=== PATIENT | male | born 1940 | race Caucasian/White ===

== ENCOUNTER 2019-08-09 16:09 | Emergency (ER) | payer MEDICARE, SELFPAY ==
[2019-08-09 16:18] VITALS: BP 160/81; PULSE 62; RESP 15; TEMP 36.4; O2SAT 98
--- NOTE | 2019-08-09 16:25 | ED_ITS ---
HPI - Fall <ELKIN Broderick-BC - Last Filed: 08/09/19 18:50> General Chief Complaint: Fall Stated Complaint: fall, hit back of head on concrete Time Seen by Provider: 08/09/19 16:14 Source: patient and family Mode of arrival: Wheelchair Limitations: no limitations History of Present Illness HPI Narrative: The patient is a 79-year-old male nonsmoker with an extensive medical history including stroke who presents with his children for chief complaint of a laceration to the back of his head and hitting his head. He tripped and fell off 1 stair, hitting his head on the concrete. No loss of consciousness. The patient denies any lightheadedness or dizziness, but states that he feels disoriented. He does not know when his last tetanus was. He denies any neck or back pain. The patient does not take any blood thinners. Family states that they have applied a dressing. The patient does not take any blood thinners. Related Data Home Medications Medication Instructions Recorded Confirmed atorvastatin 20 mg PO BEDTIME 08/09/19 08/09/19 finasteride 5 mg PO BEDTIME 08/09/19 08/09/19 hydrochlorothiazide 25 mg PO BEDTIME 08/09/19 08/09/19 lacosamide [Vimpat] 50 mg PO BID 08/09/19 08/09/19 levetiracetam 250 mg PO BID 08/09/19 08/09/19 levothyroxine 75 mcg PO DAILY 08/09/19 08/09/19 metoprolol tartrate 50 mg PO BID 08/09/19 08/09/19 omeprazole 20 mg PO DAILY 08/09/19 08/09/19 tamsulosin 0.4 mg PO DAILY 08/09/19 08/09/19 Review of Systems <ELKIN Broderick- - Last Filed: 08/09/19 18:50> Review of Systems Narrative: GENERAL: Denies chills, fatigue, malaise, fever, sweats. HEENT: Denies sinus pain, ear pain, sore throat, difficulty swallowing, dizziness. RESPIRATORY: Denies dyspnea, cough, wheezing, hemoptysis, sputum. CARDIOVASCULAR: Denies chest pain, palpitations, orthopnea, edema, GASTROINTESTINAL: Denies nausea, vomiting, abdominal pain, diarrhea, constipation, melena. : Denies dysuria, frequency, incontinence, hematuria, urinary retention. MUSCULOSKELETAL: See HPI SKIN: See HPI NEUROLOGIC: Denies weakness, headache, numbness, change in speech, confusion, seizures, incoordination. PSYCHIATRIC: No concerning psychosocial issues. 12 point review of systems is negative except for those stated above Patient History <MART Broderick - Last Filed: 08/09/19 18:50> Medical History (Updated 08/09/19 @ 18:43 by MART Broderick) History of stroke (Acute) Hypothyroid (Acute) Substance Use Type: does not use Exam <MART Broderick - Last Filed: 08/09/19 18:50> Narrative Exam Narrative: GENERAL: This is a well-nourished, well-developed patient, no acute distress HEAD: Atraumatic. Normocephalic. Laceration on occiput of head as noted in skin exam EYES: Pupils equal round and reactive. Extraocular motions intact. No scleral icterus. No injection or drainage. ENT: Nose without bleeding, purulent drainage or septal hematoma. Throat without erythema, tonsillar hypertrophy or exudate. Uvula midline. Airway patent. NECK: Trachea midline. No JVD or lymphadenopathy. Supple, nontender, no meningeal signs. CARDIOVASCULAR: Regular rate and rhythm RESPIRATORY: Clear to auscultation. Breath sounds equal bilaterally. No wheezes, rales, or rhonchi. No cough. No increased respiratory effort. No accessory muscle use. GASTROINTESTINAL: Abdomen soft, non-tender, nondistended. No hepato-splenomeg terry, or palpable masses. No guarding. EXTREMITIES: No clubbing, cyanosis, or edema. No joint tenderness, effusion, or edema noted. BACK: Nontender without deformity or crepitance. No flank tenderness. NEURO: AOx3. Interactive. Age appropriate. No pain to CT or L-spine palpation SKIN: 6 cm full-thickness laceration noted on back of head, no obvious muscle or tendon involvement. Well-approximated. Noted to have 2 x 2 cm overlying abrasion Initial Vital Signs Initial Vital Signs: Vital Signs Temperature 97.5 F L 08/09/19 16:18 Pulse Rate 62 08/09/19 16:18 Respiratory Rate 15 08/09/19 16:18 Blood Pressure 160/81 H 08/09/19 16:18 Pulse Oximetry 98 08/09/19 16:18 <Joan Healy DO - Last Filed: 08/10/19 07:21> Initial Vital Signs Initial Vital Signs: Vital Signs Temperature 97.5 F L 08/09/19 16:18 Pulse Rate 62 08/09/19 16:18 Respiratory Rate 15 08/09/19 16:18 Blood Pressure 160/81 H 08/09/19 16:18 Pulse Oximetry 98 08/09/19 16:18 Procedures <MART Broderick - Last Filed: 08/09/19 18:50> Laceration Repair Laceration 1: Site: scalp Size (cm): 6 Description: linear Depth: simple, single layer Local Anesthetic: other anesthetic (emla ) Pre-repair: wound explored, irrigated extensively (Cleansed with iodine) and deep structures intact Skin layer closed with: fátima (8) Scores <MART Broderick - Last Filed: 08/09/19 18:50> GCS Felecia coma scale eye opening: Spontaneous [place] coma scale verbal response: Orientated [place] coma scale motor response: Obey commands Felecia coma scale total score: 15 Nexus Score for C-Spine Focal Neurologic deficit present: No Midline spinal tenderness present: No Altered level of conciousness present: No Intoxication present: No Distracting Injury Present: No Nexus Criteria for C-spine: 0 Course <MART Broderick - Last Filed: 08/09/19 18:50> Orders Ordered: Discontinued Medications Diphtheria/Tetanus/Acell Pertussis (Adacel) 0.5 ml IM .ONCE ONE Stop: 08/09/19 16:24 Last Admin: 08/09/19 16:52 Dose: 0.5 ml Documented by: JASON Lidocaine (Lidoderm) 1 each TOP NOW ONE Stop: 08/09/19 16:24 Last Admin: 08/09/19 16:40 Dose: Not Given Documented by: JASON Lidocaine/Prilocaine (Lidocaine-Prilocaine Cream) 5 gm TOP NOW ONE Stop: 08/09/19 16:26 Last Admin: 08/09/19 16:52 Dose: 5 gm Documented by: JASON Vital Signs Vital signs: Vital Signs - 8 hr 08/09/19 16:18 08/09/19 18:01 08/09/19 18:06 Temperature 97.5 F L Pulse Rate 62 60 64 Respiratory Rate 15 18 16 Blood Pressure 160/81 H 156/80 H Blood Pressure [Right Arm] 133/67 Pulse Oximetry 98 97 97 <Joan Healy DO - Last Filed: 08/10/19 07:21> Orders Ordered: Discontinued Medications Diphtheria/Tetanus/Acell Pertussis (Adacel) 0.5 ml IM .ONCE ONE Stop: 08/09/19 16:24 Last Admin: 08/09/19 16:52 Dose: 0.5 ml Documented by: JASON Lidocaine (Lidoderm) 1 each TOP NOW ONE Stop: 08/09/19 16:24 Last Admin: 08/09/19 16:40 Dose: Not Given Documented by: JASON Lidocaine/Prilocaine (Lidocaine-Prilocaine Cream) 5 gm TOP NOW ONE Stop: 08/09/19 16:26 Last Admin: 08/09/19 16:52 Dose: 5 gm Documented by: JASON Vital Signs Vital signs: Vital Signs - 8 hr 08/09/19 16:18 08/09/19 18:01 08/09/19 18:06 Temperature 97.5 F L Pulse Rate 62 60 64 Respiratory Rate 15 18 16 Blood Pressure 160/81 H 156/80 H Blood Pressure [Right Arm] 133/67 Pulse Oximetry 98 97 97 MDM - Fall <MART Broderick - Last Filed: 08/09/19 18:50> Imaging Data C-spine CT: Radiologist's impression: [place] [address] CT Scan Report Signed Patient: Kun Nascimento RMR#: [id number] : 1940Acct:[id number] Age/Sex: 79 / MDate of Service: 08/09/19 Loc: ED Accession Number: [id number] Procedure: CT cervical spine wo con Ordering Provider: Amanda Terrell PROCEDURE: CT CERVICAL SPINE WO CON INDICATIONS: glf TECHNIQUE: Noncontrast 3 mm thick sections acquired from the skull base to the T4 level. Sagittal and coronal reformats were then constructed. For radiation dose reduction, the following was used: automated exposure control, adjustment of mA and/or kV according to patient size. COMPARISON: [facility], CT, CT HEAD/BRAIN WO CON, 08/09/2019, 16:35. FINDINGS: Image quality: Excellent. Bones: No fractures or dislocations. Visualized superior ribs are intact. Degenerative changes are seen, which are most prominent inferiorly, with moderate to severe disc space narrowing at C5-C6 and C6-C7. Bridging anterior osteophytes are seen involving the lower cervical spine and the visualized thoracic spine. Soft tissues: Prevertebral soft tissues are normal in thickness. No paravertebral hematomas. No apical pneumothoraces. IMPRESSION: No acute fractures are seen. Relatively prominent degenerative changes are seen, particularly involving the inferior cervical spine. Dictated by: Sunny Contreras M.D. on 08/09/2019 at 15:54 Approved by: Sunny Contreras M.D. on 08/09/2019 at 15:55 CT scan - head: Radiologist's impression: Kun Nascimento [address] [place] [address] CT Scan Report Signed Patient: Kun Nascimento RMR#: [id number] : 1940Acct:[id number] Age/Sex: 79 / MDate of Service: 08/09/19 Loc: ED Accession Number: [id number] Procedure: CT head/brain wo con [facility]: CT HEAD/BRAIN WO CON INDICATIONS: glf on concrete, hit head TECHNIQUE: Noncontrast 4.5 mm thick angled axial sections acquired from the foramen magnum to the vertex, with coronal and sagittal reformats. For radiation dose reduction, the following was used: automated exposure control, adjustment of mA and/or kV according to patient size. COMPARISON: [facility], CT, CT CERVICAL SPINE WO CON, 08/09/2019, 16:35. FINDINGS: Image quality: Excellent. CSF spaces: Basal cisterns are patent. No extra-axial fluid collections. The ventricles are symmetric in size and shape. Brain: Remote encephalomalacia can be seen involving the deep white matter of the right frontal lobe, with relative sparing of overlying feliciano matter No intracranial bleeds or masses. There is cerebral volume loss for age, with resultant ventricular and sulcal prominence. There are periventricular and deep white matter chronic small vessel ischemic changes. There is intracranial internal carotid artery atherosclerosis. Skull and face: Calvarium and visualized facial bones appear intact, without suspicious lesions. Sinuses: Visualized sinuses and mastoids are clear. IMPRESSION: No acute intracranial hemorrhage is seen. No acute intracranial process is seen. No displaced calvarial fracture can be seen. Right frontal lobe the density is seen, which is attributed to a remote infarct. However, less likely would be a mass with surrounding edema. When clinically appropriate, please consider a dedicated brain MRI with and without contrast for further evaluation (assuming that there is no contraindication). Dictated by: Sunny Contreras M.D. on 08/09/2019 at 15:49 Approved by: Sunny Contreras M.D. on 08/09/2019 at 15:54 [facility] Narrative Medical decision making narrative: The patient is a 79-year-old male with history of stroke who presents with a chief complaint of a trip and fall off of a stair hitting his head on concrete. Denies any loss of consciousness or neurological changes. He does have a history of stroke, given his history, advanced age and the significance of the trauma to the back of his head, a head CT was obtained. This had no acute findings. The patient was placed in a C- collar and a C-spine CT was also obtained. This shows no acute changes. The wound was cleansed provided iodine, it was closed as per procedural note which the patient tolerated well. I discussed at length monitoring for signs and symptoms of infection such as redness with some swelling. Discussed monitoring for neurological changes. Discussed following up in 10-14 days for staple removal. Patient has no questions or concerns and states understanding of return precautions as well as follow-up care. The patient was discharged home with his children. No questions or concerns. Discharge Plan Departure Patient Disposition: Home Clinical Impression: Laceration Fall down stairs Qualifiers: Encounter type: initial encounter Qualified Code(s): W10.8XXA - Fall (on) (from) other stairs and steps, initial encounter Closed head injury Qualifiers: Encounter type: initial encounter Qualified Code(s): S09.90XA - Unspecified injury of head, initial encounter Discharge Date/Time: 08/09/19 18:07 Instructions: DI for Laceration Repair -- Fátima, How to Prevent Falls, DI for Closed Head Injury Activity Restrictions/Additional Instructions: Thank you for trusting us with your care today. You have earned your ice cream and I hope it is very tasty. CTs of your head and neck show no acute findings. Please follow up in about 10 days for staple removal. Please monitor for signs and symptoms of infection such as redness pus and swelling. Please follow up with these occur. Please come back to the emergency department for any acute concerns. Prescriptions: No Action levothyroxine 75 mcg tablet 75 mcg PO DAILY RF: 0 atorvastatin 20 mg tablet 20 mg PO BEDTIME RF: 0 tamsulosin 0.4 mg capsule 0.4 mg PO DAILY RF: 0 levetiracetam 250 mg tablet 250 mg PO BID RF: 0 metoprolol tartrate 50 mg tablet 50 mg PO BID RF: 0 omeprazole 20 mg capsule,delayed release(DR/EC) 20 mg PO DAILY RF: 0 hydrochlorothiazide 25 mg tablet 25 mg PO BEDTIME RF: 0 Vimpat 50 mg tablet 50 mg PO BID RF: 0 finasteride 5 mg tablet 5 mg PO BEDTIME RF: 0
--- NOTE | 2019-08-09 16:30 | DI.CT.S_ITS ---
PROCEDURE: CT CERVICAL SPINE WO CON INDICATIONS: glf TECHNIQUE: Noncontrast 3 mm thick sections acquired from the skull base to the T4 level. Sagittal and coronal reformats were then constructed. For radiation dose reduction, the following was used: automated exposure control, adjustment of mA and/or kV according to patient size. COMPARISON: [facility], CT, CT HEAD/BRAIN WO CON, 08/09/2019, 16:35. FINDINGS: Image quality: Excellent. Bones: No fractures or dislocations. Visualized superior ribs are intact. Degenerative changes are seen, which are most prominent inferiorly, with moderate to severe disc space narrowing at C5-C6 and C6-C7. Bridging anterior osteophytes are seen involving the lower cervical spine and the visualized thoracic spine. Soft tissues: Prevertebral soft tissues are normal in thickness. No paravertebral hematomas. No apical pneumothoraces. IMPRESSION: No acute fractures are seen. Relatively prominent degenerative changes are seen, particularly involving the inferior cervical spine. Dictated by: Sunny Contreras M.D. on 08/09/2019 at 15:54 Approved by: Sunny Contreras M.D. on 08/09/2019 at 15:55
[2019-08-09] MEDS: LIDOCAINE/PRILOCAINE 5 GM TOP (16:52)
[2019-08-09] MEDS: TET,DIPH,PERTUSS(ACELL),VAC/PF 0.5 ML SYRINGE IM (16:52)
--- NOTE | 2019-08-09 17:49 | PC.NURSE ---
MARCO Terrell cleansed and placed 8 fátima to wound. pt tolerated well.
[2019-08-09 18:01] VITALS: BP 133/67; PULSE 60; RESP 18; O2SAT 97
[2019-08-09 18:06] VITALS: BP 156/80; PULSE 64; RESP 16; O2SAT 97
== END 2019-08-09 18:07 | disposition home or self-care (01) ==
PROVIDERS: Emergency Provider Nurse Practitioner Family
DX: S01.01XA Laceration without foreign body of scalp, initial encounter (principal); S09.90XA Unspecified injury of head, initial encounter; W10.8XXA Fall (on) (from) other stairs and steps, initial encounter; Z23 Encounter for immunization
CPT/HCPCS: 12002; 70450; 72125; 90471; 99283; 99284; 90715

== ENCOUNTER → 2020-11-18 13:11 | Outpatient (CLI) | payer MEDICARE, SELFPAY ==
[2020-11-18] MEDS: COVID-19 VACC, Ad26(JANSSEN)/PF 0.5 ML IM (13:41)
== END ==
PROVIDERS: Visit Provider Internal Medicine
DX: Z23 Encounter for immunization (principal)
CPT/HCPCS: 0031A; 91303

== ENCOUNTER 2022-05-18 14:30 | Outpatient (RCR) | payer MEDICARE, SELFPAY ==
--- NOTE | 2022-02-21 18:28 | PT.OIE ---
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) Ataxia, unspecified (02/21/22) Past Medical History (Last Updated 08/09/19 @ 18:43 by Amanda Terrell [facility]) History of stroke Hypothyroid Visit Care Team Role Provider Type Ranjan Zhao MD Attending Provider Non-Staff Family Provider Primary Care Provider Referring Provider Specialty: Internal Medicine Address: [address] [place], [place] [id number], [place], [address] Email: Physical Therapy Initial Evaluation PT-OP-A Visit Information Start: 02/20/22 18:11 Freq: Status: Active Protocol: Document 02/21/22 13:50 [facility] (Rec: 02/21/22 14:42 [facility] [id number]) Out-Patient Physical Therapy Visit Information Visit Information Visit Type Initial Evaluation Visit Note 09/19 Visit Start Time 13:50 Visit Stop Time 14:30 Total Visit Minutes 40 Visit Number 1 Number of UTILITIES ESTIMATOR AND DRAFTER Visits 0 PT-OP-B Current Condition Start: 02/20/22 18:11 Freq: Status: Active Protocol: Document 02/21/22 13:50 [facility] (Rec: 02/21/22 14:42 [facility] [id number]) Current Condition History of Current Condition Current Complaints falls, weakness, dec balance History of Current Condition Pt reports he had a CVA in 2013 and had PT/OT for 2 months including SNF and it looked like he was going to recover all the way then had a seizure, in 2014. He reports he has no balance at all. If i stub my toe, I go down. A month or so ago, he had a bad case of brochitis and got very weak. He is still not where he was prior to brochitis. He walks with walking stick in R hand at all times. He does a lot of things outside. He has lawn tractor close by in case he needs to grab. He lives alone and has a large yard. He keeps up the shrubs, and uses the community service director. He can most of the time get up when he falls. He is falling at least 1x/week. Pt reports his L leg doesn't do a lot of movement. 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 Pt reports last couple years, the falls have been worse. He doesn't drive and dgt brings him. Pt lives in [place] and will be staying with his dgt for a few weeks at a time then going home for a few weeks. Treatment Goals Patient/Caregiver Goals Improve balance, improve gait, strengthen L leg, dec falls PT-OP-D Balance Start: 02/20/22 18:11 Freq: Status: Active Protocol: Document 02/21/22 13:50 [facility] (Rec: 02/21/22 14:42 [facility] [id number]) Balance Tests Prasad Balance Test Prasad Balance Test Score 36 Single Limb Standing Single Limb- Right 1 sec Single Limb- Left 1 sec PT-OP-E Functional Tests Start: 02/20/22 18:11 Freq: Status: Active Protocol: Document 02/21/22 13:50 [facility] (Rec: 02/21/22 14:42 [facility] [id number]) Functional Tests 30 Second Sit to Stand Test Score 6 Comments w/hands Dynamic Gait Index (DGI) Score 10 Five Times Sit to Stand Test Score 25 sec Comments w/hands Timed Up and Go (TUG) Score 26 sec no AD PT-OP-G Mobility & Gait Start: 02/20/22 18:11 Freq: Status: Active Protocol: Document 02/21/22 13:50 [facility] (Rec[facility] 02/21/22 14[id number] OP Mobility Evaluation Bed Mobility Rolling indep Transfers Sit to Stand must uses UE OP Gait Assessment Comments Gait Comments Pt has dec DF w/LLE w/ clearance, dec stance time on on LLE , slow, walking stick in RUE PT-OP-M Strength Start: 02/20/22 18:11 Freq: Status: Active Protocol: Document 02/21/22 13:50 [facility] (Rec: 02/21/22 14:42 [facility] [id number]) Hip Strength Hip Manual Muscle Testing Right Flexion (L2) 4- Good- Abduction 3+ Fair+ External Rotation 4 Good Internal Rotation 4+ Good+ Left Flexion (L2) 3+ Fair+ Abduction 3 Fair External Rotation 3+ Fair+ Internal Rotation 3- Fair- Knee Strength Knee Manual Muscle Testing Right Flexion (S2) 5 Normal Extension (L3) 5 Normal Left Flexion (S2) 3+ Fair+ Extension (L3) 4 Good Ankle/Foot Strength Ankle and Foot Manual Muscle Testing Right Dorsiflexion (L4) 5 Normal Plantarflexion (S1) 5 Normal Comments PF tested seated Left Dorsiflexion (L4) 3- Fair- Plantarflexion (S1) 4- Good- Comments PF tested seated PT-OP-T Assessment and Plan Start: 02/20/22 18:11 Freq: Status: Active Protocol: Document 02/21/22 13:50 [facility] (Rec: 02/21/22 14:42 [facility] [id number]) Physical Therapy Assessment Rehab Potential Rehabilitation Potential Good Evaluation Complexity Number of Personal Factors/Comorbidities 3 or More Number of Body Systems Impaired 4 or More Clinical Presentation at Evaluation Unstable Impairments Impairments Activity Tolerance,Balance, Functional Activities, Functional Mobility,Gait,Pain, Posture,ROM,Strength Goals falls Intermediate Goal (LTG) Pt will report no falls for 3 weeks LTG Duration 05/24/22 DGI Impairment 07/03 Short Term Goal (STG) Pt will improve score to at least 15 to dec risk for falls . STG Duration 04/10/22 Intermediate Goal (LTG) Pt will imrpove score to at least 20 to dec risk for falls . LTG Duration 05/24/22 PRASAD Impairment 36 Short Term Goal (STG) Pt will improve score to at least >45 to show dec risk of fall and safe ambulator w/o AD . STG Duration 04/10/22 Intermediate Goal (LTG) Pt will improve score to >50 to show safe community ambulator. LTG Duration 05/24/22 sit to stands Short Term Goal (STG) Pt will be able to do sit to stand from standard chair w/o UE use to show improved balancea nd LE strength STG Duration 04/10/22 Dipping Machine Operator Goal (LTG) Pt will be able to do 10 sit to stands in 30 sec which is an age related norm to show improved balance and LE strength LTG Duration 05/24/22 strength Short Term Goal (STG) Pt will be indep w/performance of HEP at home and w/dgt at her home. STG Duration 04/08/22 Intermediate Goal (LTG) Pt will improve strength to at least 4+/5 on R and at least 4/5 on L to improve pt's strength in order to improve balance and gait mechanics. LTG Duration 05/24/22 Assessment Summary Assessment Pt presents w/worsening balance over the past few years w/history of CVA in 2014 that affected his L side and seizures that worsened his condition starting in 2014. He is now falling about 1x/week and lives alone most of the time and is able to attend PT appts by visiting dgt in [place] for a few weeks at a time to get services as he does not drive anymore. He has limited L ankle PROM and AROM which prevents him from getting good LLE clearance during gait. He shows significant fall risk based on sit tos tand testing, DGI and PRASAD. He would benefit from skilled PT to work on strength , balance, and gait. Physical Therapy Plan Frequency and Duration Frequency of Treatment 2x/Week Duration of Treatment 3 months Plan of Care Start Date 02/21/22 Plan of Care End Date 05/24/22 Therapeutic Interventions Therapeutic Interventions Aquatic Therapy,Balance Training,Gait Training,Home Exercise Program,Manual Therapy,Neuromuscular Re- education,Patient/Caregiver Education,Self-Care/Home Management,Taping,Therapeutic Activities,Therapeutic Exercises Next Visit Focus/Plan Next Note Type Treatment Note Next Visit Plan HEP: standing hip abd, standing hip ext, sit to stands, heel raises, seated APs; balance in standing w/ dynamic movements & on foam
--- NOTE | 2022-02-21 18:28 | PT.OPPOC ---
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 (Rec: 02/21/22 14:42 [facility] [id number]) Physical Therapy Assessment Rehab Potential Rehabilitation Potential Good Evaluation Complexity Number of Personal Factors/Comorbidities 3 or More Number of Body Systems Impaired 4 or More Clinical Presentation at Evaluation Unstable Impairments Impairments Activity Tolerance,Balance, Functional Activities, Functional Mobility,Gait,Pain, Posture,ROM,Strength Goals falls Aqueduct And Reservoir Keeper Goal (LTG) Pt will report no falls for 3 weeks LTG Duration 05/24/22 DGI Impairment 07/03 Short Term Goal (STG) Pt will improve score to at least 15 to dec risk for falls . STG Duration 04/10/22 Aqueduct And Reservoir Keeper Goal (LTG) Pt will imrpove score to at least 20 to dec risk for falls . LTG Duration 05/24/22 PRASAD Impairment 36 Short Term Goal (STG) Pt will improve score to at least >45 to show dec risk of fall and safe ambulator w/o AD . STG Duration 04/10/22 Aqueduct And Reservoir Keeper Goal (LTG) Pt will improve score to >50 to show safe community ambulator. LTG Duration 05/24/22 sit to stands Short Term Goal (STG) Pt will be able to do sit to stand from standard chair w/o UE use to show improved balancea nd LE strength STG Duration 04/10/22 Aqueduct And Reservoir Keeper Goal (LTG) Pt will be able to do 10 sit to stands in 30 sec which is an age related norm to show improved balance and LE strength LTG Duration 05/24/22 strength Short Term Goal (STG) Pt will be indep w/performance of HEP at home and w/dgt at her home. STG Duration 04/08/22 Aqueduct And Reservoir Keeper Goal (LTG) Pt will improve strength to at least 4+/5 on R and at least 4/5 on L to improve pt's strength in order to improve balance and gait mechanics. LTG Duration 05/24/22 Assessment Summary Assessment Pt presents w/worsening balance over the past few years w/history of CVA in 2013 that affected his L side and seizures that worsened his condition starting in 2014. He is now falling about 1x/week and lives alone most of the time and is able to attend PT appts by visiting dgt in [place] for a few weeks at a time to get services as he does not drive anymore. He has limited L ankle PROM and AROM which prevents him from getting good LLE clearance during gait. He shows significant fall risk based on sit tos tand testing, DGI and PRASAD. He would benefit from skilled PT to work on strength , balance, and gait. Physical Therapy Plan Frequency and Duration Frequency of Treatment 2x/Week Duration of Treatment 3 months Plan of Care Start Date 02/21/22 Plan of Care End Date 05/24/22 Therapeutic Interventions Therapeutic Interventions Aquatic Therapy,Balance Training,Gait Training,Home Exercise Program,Manual Therapy,Neuromuscular Re- education,Patient/Caregiver Education,Self-Care/Home Management,Taping,Therapeutic Activities,Therapeutic Exercises Next Visit Focus/Plan Next Note Type Treatment Note Next Visit Plan HEP: standing hip abd, standing hip ext, sit to stands, heel raises, seated APs; balance in standing w/ dynamic movements & on foam Plan of Care Dates Plan of Care Start Date 02/21/22 Plan of Care End Date 05/24/22 Electronically Signed by: Maya Alexandra, PT 02/21/22 0071 If you are in agreement with this Plan of Care, please return a signed and dated copy. I have reviewed this Plan of Care and certify that the skilled therapy services above are required to meet the patient?s needs. Physician Signature Date Printed Name and Credentials Clinical Instructor Signature Printed Name and Credentials
--- NOTE | 2022-02-23 10:40 | PT.OTN ---
Current Diagnoses Ataxia following cerebral infarction (02/23/22) Ataxia, unspecified (02/23/22) Physical Therapy Treatment Note PT-OP-A Visit Information Start: 02/20/22 18:11 Freq: Status: Active Protocol: Document 02/23/22 10:02 [facility] (Rec: 02/23/22 10:47 [facility] [id number]) Out-Patient Physical Therapy Visit Information Visit Information Visit Type Treatment Note Visit Note 10/20 Visit Start Time 09:55 Visit Stop Time 10:40 Total Visit Minutes 45 Visit Number 2 Number of FLEET MANAGER/DISPATCH Visits 1 PT-OP-B Current Condition Start: 02/20/22 18:11 Freq: Status: Active Protocol: Document 02/21/22 13:50 [facility] (Rec: 02/21/22 14:42 [facility] [id number]) Current Condition History of Current Condition Current Complaints falls, weakness, dec balance History of Current Condition Pt reports he had a CVA in 2013 and had PT/OT for 2 months including SNF and it looked like he was going to recover all the way then had a seizure, in 2014. He reports he has no balance at all. If i stub my toe, I go down. A month or so ago, he had a bad case of brochitis and got very weak. He is still not where he was prior to brochitis. He walks with walking stick in R hand at all times. He does a lot of things outside. He has lawn tractor close by in case he needs to grab. He lives alone and has a large yard. He keeps up the shrubs, and uses the photoengraving etcher apprentice. He can most of the time get up when he falls. He is falling at least 1x/week. Pt reports his L leg doesn't do a lot of movement. 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 Pt reports last couple years, the falls have been worse. He doesn't drive and dgt brings him. Pt lives in [place] and will be staying with his dgt for a few weeks at a time then going home for a few weeks. Treatment Goals Patient/Caregiver Goals Improve balance, improve gait, strengthen L leg, dec falls PT-OP-C Subjective Start: 02/20/22 18:11 Freq: Status: Active Protocol: Document 02/23/22 10:02 [facility] (Rec: 02/23/22 10:47 [facility] [id number]) OP-PT Subjective Patient Comments Patient Comments Pt reports he had a mini seizure today on his L side about 8a and is feeling more tired and weaker. He's been doing his exercises but is unable to do them as well after the seizure. He cannot close his L hand completely since CVA. PT-OP-D Balance Start: 02/20/22 18:11 Freq: Status: Active Protocol: Document 02/21/22 13:50 [facility] (Rec: 02/21/22 14:42 [facility] [id number]) Balance Tests Prasad Balance Test Prasad Balance Test Score 36 Single Limb Standing Single Limb- Right 1 sec Single Limb- Left 1 sec PT-OP-E Functional Tests Start: 02/20/22 18:11 Freq: Status: Active Protocol: Document 02/21/22 13:50 [facility] (Rec: 02/21/22 14:42 [facility] [id number]) Functional Tests 30 Second Sit to Stand Test Score 6 Comments w/hands Dynamic Gait Index (DGI) Score 10 Five Times Sit to Stand Test Score 25 sec Comments w/hands Timed Up and Go (TUG) Score 26 sec no AD PT-OP-G Mobility & Gait Start: 02/20/22 18:11 Freq: Status: Active Protocol: Document 02/21/22 13:50 [facility] (Rec: 02/21/22 14:42 [facility] [id number]) OP Mobility Evaluation Bed Mobility Rolling indep Transfers Sit to Stand must uses UE OP Gait Assessment Comments Gait Comments Pt has dec DF w/LLE w/ clearance, dec stance time on on LLE , slow, walking stick in RUE PT-OP-M Strength Start: 02/20/22 18:11 Freq: Status: Active Protocol: Document 02/21/22 13:50 [facility] (Rec: 02/21/22 14:42 [facility] [id number]) Hip Strength Hip Manual Muscle Testing Right Flexion (L2) 4- Good- Abduction 3+ Fair+ External Rotation 4 Good Internal Rotation 4+ Good+ Left Flexion (L2) 3+ Fair+ Abduction 3 Fair External Rotation 3+ Fair+ Internal Rotation 3- Fair- Knee Strength Knee Manual Muscle Testing Right Flexion (S2) 5 Normal Extension (L3) 5 Normal Left Flexion (S2) 3+ Fair+ Extension (L3) 4 Good Ankle/Foot Strength Ankle and Foot Manual Muscle Testing Right Dorsiflexion (L4) 5 Normal Plantarflexion (S1) 5 Normal Comments PF tested seated Left Dorsiflexion (L4) 3- Fair- Plantarflexion (S1) 4- Good- Comments PF tested seated PT-OP-Q Treatments Start: 02/20/22 18:11 Freq: Status: Active Protocol: Document 02/23/22 10:02 [facility] (Rec: 02/26/22 17:11 [facility] [id number]) Therapeutic Exercises Sitting Exercises Hand Abduction to Closed Fist Side left Reps/Minutes 10 rep x 5 SH ea Comments vc to hold each position 5 Hip Adduction Sitting Exercise Name Seated ball squeeze Side bilateral Equipment Used red handball Reps/Minutes 10 x 3 SH Comments Added to HEP Heel raises Sitting Exercise Name Seated heel raises Side bilateral Reps/Minutes 2 x 10 ea Comments Added to HEP Standing Exercises Hip Extension Side bilateral Reps/Minutes 1 x 5 ea Comments cues for upright posture, toes forward and form. Hip Abduction Side bilateral Reps/Minutes 1 x 5 ea Comments cues for upright posture, toes forward and form. Sit to Stand Reps/Minutes 1 x 5 rep Comments vc for controlled descent, scooting to edge of chair. PT-OP-T Assessment and Plan Start: 02/20/22 18:11 Freq: Status: Active Protocol: Document 02/23/22 10:02 [facility] (Rec: 02/23/22 10:47 [facility] [id number]) Physical Therapy Assessment Goals falls Dry Cleaning Attendant Goal (LTG) Pt will report no falls for 3 weeks LTG Duration 05/24/22 DGI Impairment 07/03 Short Term Goal (STG) Pt will improve score to at least 15 to dec risk for falls . STG Duration 04/10/22 Alf Goal (LTG) Pt will imrpove score to at least 20 to dec risk for falls . LTG Duration 05/24/22 PRASAD Impairment 36 Short Term Goal (STG) Pt will improve score to at least >45 to show dec risk of fall and safe ambulator w/o AD . STG Duration 04/10/22 Alf Goal (LTG) Pt will improve score to >50 to show safe community ambulator. LTG Duration 05/24/22 sit to stands Short Term Goal (STG) Pt will be able to do sit to stand from standard chair w/o UE use to show improved balancea nd LE strength STG Duration 04/10/22 Alf Goal (LTG) Pt will be able to do 10 sit to stands in 30 sec which is an age related norm to show improved balance and LE strength LTG Duration 05/24/22 strength Short Term Goal (STG) Pt will be indep w/performance of HEP at home and w/dgt at her home. STG Duration 04/08/22 Alf Goal (LTG) Pt will improve strength to at least 4+/5 on R and at least 4/5 on L to improve pt's strength in order to improve balance and gait mechanics. LTG Duration 05/24/22 Assessment Summary Assessment Kun arrives fatigued today after having a seizure this morning. He demonstrates LLE weakness and readily applies principles of energy conservation. He requires cues for upright posture and form w/ standing hip exercises. Seated ball squeezes and heel raises added to HEP. Kun had a mini seizure while being escorted out ~ 1 min - pt was able to sit in chair and FLEET MANAGER/DISPATCH was present throughout . Daughter Ashish assisted pt out per his request. Physical Therapy Plan Next Visit Focus/Plan Next Note Type Treatment Note Next Visit Plan Check status with seizures, fatigue and ability to perform HEP. Review HEP: standing hip abd/ ext, sit to stands, seated heel raises, seated APs. If appropriate add balance in standing w/dynamic movements & on foam.
--- NOTE | 2022-03-01 13:48 | PT.OTN ---
Current Diagnoses Ataxia following cerebral infarction (03/01/22) Ataxia, unspecified (03/01/22) Physical Therapy Treatment Note PT-OP-A Visit Information Start: 02/20/22 18:11 Freq: Status: Active Protocol: Document 03/01/22 13:00 [facility] (Rec: 03/01/22 13:47 [facility] [id number]) Out-Patient Physical Therapy Visit Information Visit Information Visit Type Treatment Note Visit Note 11/17 Visit Start Time 13:00 Visit Stop Time 13:43 Total Visit Minutes 43 Visit Number 3 Number of NISSAN SALES CONSULTANT Visits 0 PT-OP-B Current Condition Start: 02/20/22 18:11 Freq: Status: Active Protocol: Document 02/21/22 13:50 [facility] (Rec: 02/21/22 14:42 [facility] [id number]) Current Condition History of Current Condition Current Complaints falls, weakness, dec balance History of Current Condition Pt reports he had a CVA in 2013 and had PT/OT for 2 months including SNF and it looked like he was going to recover all the way then had a seizure, in 2014. He reports he has no balance at all. If i stub my toe, I go down. A month or so ago, he had a bad case of brochitis and got very weak. He is still not where he was prior to brochitis. He walks with walking stick in R hand at all times. He does a lot of things outside. He has lawn tractor close by in case he needs to grab. He lives alone and has a large yard. He keeps up the shrubs, and uses the construction estimator. He can most of the time get up when he falls. He is falling at least 1x/week. Pt reports his L leg doesn't do a lot of movement. 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 Pt reports last couple years, the falls have been worse. He doesn't drive and dgt brings him. Pt lives in [place] and will be staying with his dgt for a few weeks at a time then going home for a few weeks. Treatment Goals Patient/Caregiver Goals Improve balance, improve gait, strengthen L leg, dec falls PT-OP-C Subjective Start: 02/20/22 18:11 Freq: Status: Active Protocol: Document 03/01/22 13:00 [facility] (Rec: 03/01/22 13:47 [facility] [id number]) OP-PT Subjective Patient Comments Patient Comments Pt reports compliance w/ exericses. He is most concerned about his balance. PT-OP-D Balance Start: 02/20/22 18:11 Freq: Status: Active Protocol: Document 02/21/22 13:50 [facility] (Rec: 02/21/22 14:42 [facility] [id number]) Balance Tests Prasad Balance Test Prasad Balance Test Score 36 Single Limb Standing Single Limb- Right 1 sec Single Limb- Left 1 sec PT-OP-E Functional Tests Start: 02/20/22 18:11 Freq: Status: Active Protocol: Document 02/21/22 13:50 [facility] (Rec: 02/21/22 14:42 [facility] [id number]) Functional Tests 30 Second Sit to Stand Test Score 6 Comments w/hands Dynamic Gait Index (DGI) Score 10 Five Times Sit to Stand Test Score 25 sec Comments w/hands Timed Up and Go (TUG) Score 26 sec no AD PT-OP-G Mobility & Gait Start: 02/20/22 18:11 Freq: Status: Active Protocol: Document 02/21/22 13:50 [facility] (Rec: 02/21/22 14:42 [facility] [id number]) OP Mobility Evaluation Bed Mobility Rolling indep Transfers Sit to Stand must uses UE OP Gait Assessment Comments Gait Comments Pt has dec DF w/LLE w/ clearance, dec stance time on on LLE , slow, walking stick in RUE PT-OP-M Strength Start: 02/20/22 18:11 Freq: Status: Active Protocol: Document 02/21/22 13:50 [facility] (Rec: 02/21/22 14:42 [facility] [id number]) Hip Strength Hip Manual Muscle Testing Right Flexion (L2) 4- Good- Abduction 3+ Fair+ External Rotation 4 Good Internal Rotation 4+ Good+ Left Flexion (L2) 3+ Fair+ Abduction 3 Fair External Rotation 3+ Fair+ Internal Rotation 3- Fair- Knee Strength Knee Manual Muscle Testing Right Flexion (S2) 5 Normal Extension (L3) 5 Normal Left Flexion (S2) 3+ Fair+ Extension (L3) 4 Good Ankle/Foot Strength Ankle and Foot Manual Muscle Testing Right Dorsiflexion (L4) 5 Normal Plantarflexion (S1) 5 Normal Comments PF tested seated Left Dorsiflexion (L4) 3- Fair- Plantarflexion (S1) 4- Good- Comments PF tested seated PT-OP-Q Treatments Start: 02/20/22 18:11 Freq: Status: Active Protocol: Document 03/01/22 13:00 [facility] (Rec: 03/01/22 13:47 [facility] [id number]) Cardio Equipment Recumbent Stepper (Sci-Fit) Duration (Minutes) 5 Resistance 5 Seat Position 11 Gym Equipment Shuttle Balance blue clips Details w/head turns Comments fwd & side: WBOS & NBOS fwd: staggered stance B Therapeutic Exercises Sitting Exercises Heel raises Sitting Exercise Name APs Side bilateral Reps/Minutes 10 Comments reviewed HEP Standing Exercises heel raises Side bilateral Reps/Minutes 15 march Side bilateral Reps/Minutes 15 ea calf stretch Standing Exercise Name fwd lean Side bilateral Reps/Minutes 30 sec ea Hip Extension Side bilateral Reps/Minutes 1 x 10 ea Comments cues for upright posture, toes forward and form. Hip Abduction Side bilateral Reps/Minutes 1 x 10 ea Comments cues for upright posture, toes forward and form. Sit to Stand Reps/Minutes 1 x 10 rep Comments vc for controlled descent, scooting to edge of chair. Neuro Re-Education Treatment Balance Activities SLS Details Toe taps to 6 in step Reps/Duration 10 B hurdles Comments 1. fwd over step through x6 2. side step over step to x2 B PT-OP-T Assessment and Plan Start: 02/20/22 18:11 Freq: Status: Active Protocol: Document 03/01/22 13:00 [facility] (Rec: 03/01/22 13:47 [facility] [id number]) Physical Therapy Assessment Goals falls Care Home Goal (LTG) Pt will report no falls for 3 weeks LTG Duration 05/24/22 DGI Impairment 07/03 Short Term Goal (STG) Pt will improve score to at least 15 to dec risk for falls . STG Duration 04/10/22 Conservation Technician Goal (LTG) Pt will imrpove score to at least 20 to dec risk for falls . LTG Duration 05/24/22 PRASAD Impairment 36 Short Term Goal (STG) Pt will improve score to at least >45 to show dec risk of fall and safe ambulator w/o AD . STG Duration 04/10/22 Conservation Technician Goal (LTG) Pt will improve score to >50 to show safe community ambulator. LTG Duration 05/24/22 sit to stands Short Term Goal (STG) Pt will be able to do sit to stand from standard chair w/o UE use to show improved balancea nd LE strength STG Duration 04/10/22 Conservation Technician Goal (LTG) Pt will be able to do 10 sit to stands in 30 sec which is an age related norm to show improved balance and LE strength LTG Duration 05/24/22 strength Short Term Goal (STG) Pt will be indep w/performance of HEP at home and w/dgt at her home. STG Duration 04/08/22 Care Home Goal (LTG) Pt will improve strength to at least 4+/5 on R and at least 4/5 on L to improve pt's strength in order to improve balance and gait mechanics. LTG Duration 05/24/22 Assessment Summary Assessment Pt did well with exercises, but is most challenged by dynamic exercise. He did well on balnce board and will likely be able to do red clips w/good challenge next esssion . Physical Therapy Plan Frequency and Duration Frequency of Treatment 2x/Week Duration of Treatment 3 months Plan of Care Start Date 02/21/22 Plan of Care End Date 05/24/22 Next Visit Focus/Plan Next Note Type Treatment Note Next Visit Plan Progress standing balance and overall strength
--- NOTE | 2022-03-02 13:45 | PT.OTN ---
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 (Rec: 03/02/22 13:45 [facility] [id number]) Out-Patient Physical Therapy Visit Information Visit Information Visit Type Treatment Note Visit Note 12/18 Visit Start Time 13:00 Visit Stop Time 13:42 Total Visit Minutes 42 Visit Number 4 Number of RESTUARANT CREW WORKER Visits 0 PT-OP-B Current Condition Start: 02/20/22 18:11 Freq: Status: Active Protocol: Document 02/21/22 13:50 [facility] (Rec: 02/21/22 14:42 [facility] [id number]) Current Condition History of Current Condition Current Complaints falls, weakness, dec balance History of Current Condition Pt reports he had a CVA in 2013 and had PT/OT for 2 months including SNF and it looked like he was going to recover all the way then had a seizure, in 2014. He reports he has no balance at all. If i stub my toe, I go down. A month or so ago, he had a bad case of brochitis and got very weak. He is still not where he was prior to brochitis. He walks with walking stick in R hand at all times. He does a lot of things outside. He has lawn tractor close by in case he needs to grab. He lives alone and has a large yard. He keeps up the shrubs, and uses the vamper. He can most of the time get up when he falls. He is falling at least 1x/week. Pt reports his L leg doesn't do a lot of movement. 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 Pt reports last couple years, the falls have been worse. He doesn't drive and dgt brings him. Pt lives in [place] and will be staying with his dgt for a few weeks at a time then going home for a few weeks. Treatment Goals Patient/Caregiver Goals Improve balance, improve gait, strengthen L leg, dec falls PT-OP-C Subjective Start: 02/20/22 18:11 Freq: Status: Active Protocol: Document 03/02/22 13:00 [facility] (Rec: 03/02/22 13:45 [facility] [id number]) OP-PT Subjective Patient Comments Patient Comments I think I am almost recovered from yesterday PT-OP-D Balance Start: 02/20/22 18:11 Freq: Status: Active Protocol: Document 02/21/22 13:50 [facility] (Rec: 02/21/22 14:42 [facility] [id number]) Balance Tests Prasad Balance Test Prasad Balance Test Score 36 Single Limb Standing Single Limb- Right 1 sec Single Limb- Left 1 sec PT-OP-E Functional Tests Start: 02/20/22 18:11 Freq: Status: Active Protocol: Document 02/21/22 13:50 [facility] (Rec: 02/21/22 14:42 [facility] [id number]) Functional Tests 30 Second Sit to Stand Test Score 6 Comments w/hands Dynamic Gait Index (DGI) Score 10 Five Times Sit to Stand Test Score 25 sec Comments w/hands Timed Up and Go (TUG) Score 26 sec no AD PT-OP-G Mobility & Gait Start: 02/20/22 18:11 Freq: Status: Active Protocol: Document 02/21/22 13:50 [facility] (Rec: 02/21/22 14:42 [facility] [id number]) OP Mobility Evaluation Bed Mobility Rolling indep Transfers Sit to Stand must uses UE OP Gait Assessment Comments Gait Comments Pt has dec DF w/LLE w/ clearance, dec stance time on on LLE , slow, walking stick in RUE PT-OP-M Strength Start: 02/20/22 18:11 Freq: Status: Active Protocol: Document 02/21/22 13:50 [facility] (Rec: 02/21/22 14:42 [facility] [id number]) Hip Strength Hip Manual Muscle Testing Right Flexion (L2) 4- Good- Abduction 3+ Fair+ External Rotation 4 Good Internal Rotation 4+ Good+ Left Flexion (L2) 3+ Fair+ Abduction 3 Fair External Rotation 3+ Fair+ Internal Rotation 3- Fair- Knee Strength Knee Manual Muscle Testing Right Flexion (S2) 5 Normal Extension (L3) 5 Normal Left Flexion (S2) 3+ Fair+ Extension (L3) 4 Good Ankle/Foot Strength Ankle and Foot Manual Muscle Testing Right Dorsiflexion (L4) 5 Normal Plantarflexion (S1) 5 Normal Comments PF tested seated Left Dorsiflexion (L4) 3- Fair- Plantarflexion (S1) 4- Good- Comments PF tested seated PT-OP-Q Treatments Start: 02/20/22 18:11 Freq: Status: Active Protocol: Document 03/02/22 13:00 [facility] (Rec: 03/02/22 13:45 [facility] [id number]) Cardio Equipment Recumbent Stepper (Sci-Fit) Duration (Minutes) 6 Resistance 5 Seat Position 11 Gym Equipment Shuttle Balance red clips Comments fwd & side : WBOS & NBOS fwd: staggered stance Therapeutic Exercises Standing Exercises side step Side bilateral Reps/Minutes 20ft ea heel raises Side bilateral Reps/Minutes 15 november Side bilateral Reps/Minutes 10 ea calf stretch Standing Exercise Name fwd lean Side bilateral Reps/Minutes 30 sec ea Neuro Re-Education Treatment Balance Activities SLS Comments 1.Toe taps to 6 in step 12 B 2. SLS modified w/opp LE on dynadisc B 3. SLS w/ball roll under foot B hurdles Details 1 hand on hand rail Comments 1. fwd over step through x6 2. side step over step to x1 B PT-OP-T Assessment and Plan Start: 02/20/22 18:11 Freq: Status: Active Protocol: Document 03/02/22 13:00 [facility] (Rec: 03/02/22 13:45 [facility] [id number]) Physical Therapy Assessment Goals falls [facility] Goal (LTG) Pt will report no falls for 3 weeks LTG Duration 05/24/22 DGI Impairment 07/03 Short Term Goal (STG) Pt will improve score to at least 15 to dec risk for falls . STG Duration 04/10/22 Wool Classer Goal (LTG) Pt will imrpove score to at least 20 to dec risk for falls . LTG Duration 05/24/22 PRASAD Impairment 36 Short Term Goal (STG) Pt will improve score to at least >45 to show dec risk of fall and safe ambulator w/o AD . STG Duration 04/10/22 Wool Classer Goal (LTG) Pt will improve score to >50 to show safe community ambulator. LTG Duration 05/24/22 sit to stands Short Term Goal (STG) Pt will be able to do sit to stand from standard chair w/o UE use to show improved balancea nd LE strength STG Duration 04/10/22 Wool Classer Goal (LTG) Pt will be able to do 10 sit to stands in 30 sec which is an age related norm to show improved balance and LE strength LTG Duration 05/24/22 strength Short Term Goal (STG) Pt will be indep w/performance of HEP at home and w/dgt at her home. STG Duration 04/08/22 Wool Classer Goal (LTG) Pt will improve strength to at least 4+/5 on R and at least 4/5 on L to improve pt's strength in order to improve balance and gait mechanics. LTG Duration 05/24/22 Assessment Summary Assessment Pt was very challneged by red clips and required a lot of encouragment to dec hand use. He did better w/toe taps but was very challenged by other modified SLS activities. Physical Therapy Plan Frequency and Duration Frequency of Treatment 2x/Week Duration of Treatment 3 months Plan of Care Start Date 02/21/22 Plan of Care End Date 05/24/22 Next Visit Focus/Plan Next Note Type Treatment Note Next Visit Plan Progress standing balance and overall strength
--- NOTE | 2022-04-25 13:53 | PT.OTN ---
Current Diagnoses Ataxia following cerebral infarction (04/25/22) Ataxia, unspecified (04/25/22) Physical Therapy Treatment Note PT-OP-A Visit Information Start: 02/20/22 18:11 Freq: Status: Active Protocol: Document 04/25/22 13:06 [facility] (Rec: 04/25/22 13:53 [facility] [id number]) Out-Patient Physical Therapy Visit Information Visit Information Visit Type Treatment Note Visit Note 01/17 Visit Start Time 13:00 Visit Stop Time 13:42 Total Visit Minutes 42 Visit Number 5 Number of TRANSPORTATION ENGINEER Visits 0 PT-OP-B Current Condition Start: 02/20/22 18:11 Freq: Status: Active Protocol: Document 02/21/22 13:50 [facility] (Rec: 02/21/22 14:42 [facility] [id number]) Current Condition History of Current Condition Current Complaints falls, weakness, dec balance History of Current Condition Pt reports he had a CVA in 2013 and had PT/OT for 2 months including SNF and it looked like he was going to recover all the way then had a seizure, in 2014. He reports he has no balance at all. If i stub my toe, I go down. A month or so ago, he had a bad case of brochitis and got very weak. He is still not where he was prior to brochitis. He walks with walking stick in R hand at all times. He does a lot of things outside. He has lawn tractor close by in case he needs to grab. He lives alone and has a large yard. He keeps up the shrubs, and uses the school operations manager. He can most of the time get up when he falls. He is falling at least 1x/week. Pt reports his L leg doesn't do a lot of movement. 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 Pt reports last couple years, the falls have been worse. He doesn't drive and dgt brings him. Pt lives in [place] and will be staying with his dgt for a few weeks at a time then going home for a few weeks. Treatment Goals Patient/Caregiver Goals Improve balance, improve gait, strengthen L leg, dec falls PT-OP-C Subjective Start: 02/20/22 18:11 Freq: Status: Active Protocol: Document 04/25/22 13:06 [facility] (Rec: 04/25/22 13:53 [facility] [id number]) OP-PT Subjective Patient Comments Patient Comments Pt reports compliance w/ exercises. NOtes he feels like his L leg turns in when walks . He was out in the pasture after mowing and ran over a sprinkler and the grass was really thick and stacked and couldn't get his foot over when trying to get the sprinkler PT-OP-D Balance Start: 02/20/22 18:11 Freq: Status: Active Protocol: Document 02/21/22 13:50 [facility] (Rec: 02/21/22 14:42 [facility] [id number]) Balance Tests Prasad Balance Test Prasad Balance Test Score 36 Single Limb Standing Single Limb- Right 1 sec Single Limb- Left 1 sec PT-OP-E Functional Tests Start: 02/20/22 18:11 Freq: Status: Active Protocol: Document 02/21/22 13:50 [facility] (Rec: 02/21/22 14:42 [facility] [id number]) Functional Tests 30 Second Sit to Stand Test Score 6 Comments w/hands Dynamic Gait Index (DGI) Score 10 Five Times Sit to Stand Test Score 25 sec Comments w/hands Timed Up and Go (TUG) Score 26 sec no AD PT-OP-G Mobility & Gait Start: 02/20/22 18:11 Freq: Status: Active Protocol: Document 02/21/22 13:50 [facility] (Rec: 02/21/22 14:42 [facility] [id number]) OP Mobility Evaluation Bed Mobility Rolling indep Transfers Sit to Stand must uses UE OP Gait Assessment Comments Gait Comments Pt has dec DF w/LLE w/ clearance, dec stance time on on LLE , slow, walking stick in RUE PT-OP-M Strength Start: 02/20/22 18:11 Freq: Status: Active Protocol: Document 02/21/22 13:50 [facility] (Rec: 02/21/22 14:42 [facility] [id number]) Hip Strength Hip Manual Muscle Testing Right Flexion (L2) 4- Good- Abduction 3+ Fair+ External Rotation 4 Good Internal Rotation 4+ Good+ Left Flexion (L2) 3+ Fair+ Abduction 3 Fair External Rotation 3+ Fair+ Internal Rotation 3- Fair- Knee Strength Knee Manual Muscle Testing Right Flexion (S2) 5 Normal Extension (L3) 5 Normal Left Flexion (S2) 3+ Fair+ Extension (L3) 4 Good Ankle/Foot Strength Ankle and Foot Manual Muscle Testing Right Dorsiflexion (L4) 5 Normal Plantarflexion (S1) 5 Normal Comments PF tested seated Left Dorsiflexion (L4) 3- Fair- Plantarflexion (S1) 4- Good- Comments PF tested seated PT-OP-Q Treatments Start: 02/20/22 18:11 Freq: Status: Active Protocol: Document 04/25/22 13:06 [facility] (Rec: 04/25/22 13:53 [facility] [id number]) Cardio Equipment Recumbent Stepper (Sci-Fit) Duration (Minutes) 6 Resistance 5 Seat Position 11 Gym Equipment Shuttle Balance red clips Comments fwd & side : WBOS & NBOS fwd: staggered stance Therapeutic Exercises Standing Exercises step ups Side left Equipment Used 4 in step rail prn Reps/Minutes 10 squat Standing Exercise Name over chair Side bilateral Reps/Minutes 15 heel raises Side bilateral Reps/Minutes 20 Neuro Re-Education Treatment Balance Activities tilt board Details fwd/back & side to side wt shifts SLS Comments 1.Toe taps to 6 in step 12 B 2.SLS w/ball roll under foot B hurdles Details 1 hand on hand rail Comments 1. fwd over step through x2 PT-OP-T Assessment and Plan Start: 02/20/22 18:11 Freq: Status: Active Protocol: Document 04/25/22 13:06 [facility] (Rec: 04/25/22 13:53 [facility] [id number]) Physical Therapy Assessment Goals falls [facility] Goal (LTG) Pt will report no falls for 3 weeks LTG Duration 05/24/22 DGI Impairment 07/03 Short Term Goal (STG) Pt will improve score to at least 15 to dec risk for falls . STG Duration 04/10/22 Mcc Goal (LTG) Pt will imrpove score to at least 20 to dec risk for falls . LTG Duration 05/24/22 PRASAD Impairment 36 Short Term Goal (STG) Pt will improve score to at least >45 to show dec risk of fall and safe ambulator w/o AD . STG Duration 04/10/22 Trimming Cutter Machine Goal (LTG) Pt will improve score to >50 to show safe community ambulator. LTG Duration 05/24/22 sit to stands Short Term Goal (STG) Pt will be able to do sit to stand from standard chair w/o UE use to show improved balancea nd LE strength STG Duration 04/10/22 Mcc Goal (LTG) Pt will be able to do 10 sit to stands in 30 sec which is an age related norm to show improved balance and LE strength LTG Duration 05/24/22 strength Short Term Goal (STG) Pt will be indep w/performance of HEP at home and w/dgt at her home. STG Duration 04/08/22 Mcc Goal (LTG) Pt will improve strength to at least 4+/5 on R and at least 4/5 on L to improve pt's strength in order to improve balance and gait mechanics. LTG Duration 05/24/22 Assessment Summary Assessment Pt did well with exercises but did report leg fatigue by end of session. He requires cues w/gait for heel strike which improves clearance. Physical Therapy Plan Frequency and Duration Frequency of Treatment 2x/Week Duration of Treatment 3 months Plan of Care Start Date 02/21/22 Plan of Care End Date 05/24/22 Next Visit Focus/Plan Next Note Type Treatment Note Next Visit Plan Progress standing balance and overall strength
--- NOTE | 2022-04-27 14:33 | PT.OTN ---
Current Diagnoses Ataxia following cerebral infarction (04/27/22) Ataxia, unspecified (04/27/22) Physical Therapy Treatment Note PT-OP-A Visit Information Start: 02/20/22 18:11 Freq: Status: Active Protocol: Document 04/27/22 14:05 [facility] (Rec: 04/27/22 14:33 [facility] [id number]) Out-Patient Physical Therapy Visit Information Visit Information Visit Type Treatment Note Visit Note 02/17 Visit Start Time 13:46 Visit Stop Time 14:27 Total Visit Minutes 41 Visit Number 6 Number of COFFEE SOMMELIER Visits 0 PT-OP-B Current Condition Start: 02/20/22 18:11 Freq: Status: Active Protocol: Document 02/21/22 13:50 [facility] (Rec: 02/21/22 14:42 [facility] [id number]) Current Condition History of Current Condition Current Complaints falls, weakness, dec balance History of Current Condition Pt reports he had a CVA in 2013 and had PT/OT for 2 months including SNF and it looked like he was going to recover all the way then had a seizure, in 2014. He reports he has no balance at all. If i stub my toe, I go down. A month or so ago, he had a bad case of brochitis and got very weak. He is still not where he was prior to brochitis. He walks with walking stick in R hand at all times. He does a lot of things outside. He has lawn tractor close by in case he needs to grab. He lives alone and has a large yard. He keeps up the shrubs, and uses the converting supervisor. He can most of the time get up when he falls. He is falling at least 1x/week. Pt reports his L leg doesn't do a lot of movement. 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 Pt reports last couple years, the falls have been worse. He doesn't drive and dgt brings him. Pt lives in [place] and will be staying with his dgt for a few weeks at a time then going home for a few weeks. Treatment Goals Patient/Caregiver Goals Improve balance, improve gait, strengthen L leg, dec falls PT-OP-C Subjective Start: 02/20/22 18:11 Freq: Status: Active Protocol: Document 04/27/22 14:05 [facility] (Rec: 04/27/22 14:33 [facility] [id number]) OP-PT Subjective Patient Comments Patient Comments Pt reports a fall yesterday off porch going up the one step and fell backwards. He hit his head and cut R elbow. Fine otherwise and felt better after. CHRIS did look him over () PT-OP-D Balance Start: 02/20/22 18:11 Freq: Status: Active Protocol: Document 02/21/22 13:50 [facility] (Rec: 02/21/22 14:42 [facility] [id number]) Balance Tests Prasad Balance Test Prasad Balance Test Score 36 Single Limb Standing Single Limb- Right 1 sec Single Limb- Left 1 sec PT-OP-E Functional Tests Start: 02/20/22 18:11 Freq: Status: Active Protocol: Document 02/21/22 13:50 [facility] (Rec: 02/21/22 14:42 [facility] [id number]) Functional Tests 30 Second Sit to Stand Test Score 6 Comments w/hands Dynamic Gait Index (DGI) Score 10 Five Times Sit to Stand Test Score 25 sec Comments w/hands Timed Up and Go (TUG) Score 26 sec no AD PT-OP-G Mobility & Gait Start: 02/20/22 18:11 Freq: Status: Active Protocol: Document 02/21/22 13:50 [facility] (Rec: 02/21/22 14:42 [facility] [id number]) OP Mobility Evaluation Bed Mobility Rolling indep Transfers Sit to Stand must uses UE OP Gait Assessment Comments Gait Comments Pt has dec DF w/LLE w/ clearance, dec stance time on on LLE , slow, walking stick in RUE PT-OP-M Strength Start: 02/20/22 18:11 Freq: Status: Active Protocol: Document 02/21/22 13:50 [facility] (Rec: 02/21/22 14:42 [facility] [id number]) Hip Strength Hip Manual Muscle Testing Right Flexion (L2) 4- Good- Abduction 3+ Fair+ External Rotation 4 Good Internal Rotation 4+ Good+ Left Flexion (L2) 3+ Fair+ Abduction 3 Fair External Rotation 3+ Fair+ Internal Rotation 3- Fair- Knee Strength Knee Manual Muscle Testing Right Flexion (S2) 5 Normal Extension (L3) 5 Normal Left Flexion (S2) 3+ Fair+ Extension (L3) 4 Good Ankle/Foot Strength Ankle and Foot Manual Muscle Testing Right Dorsiflexion (L4) 5 Normal Plantarflexion (S1) 5 Normal Comments PF tested seated Left Dorsiflexion (L4) 3- Fair- Plantarflexion (S1) 4- Good- Comments PF tested seated PT-OP-Q Treatments Start: 02/20/22 18:11 Freq: Status: Active Protocol: Document 04/27/22 14:05 [facility] (Rec: 04/27/22 14:33 [facility] [id number]) Cardio Equipment Recumbent Elliptical (Biodex) Duration (Minutes) 5 Resistance 6-8 Seat Position 8 Gym Equipment Shuttle Balance red clips Comments fwd & side : WBOS & NBOS fwd: staggered stance Therapeutic Exercises Standing Exercises DF Side bilateral Reps/Minutes 15 step ups Side left Equipment Used 4 in step rail prn Reps/Minutes 10 squat Standing Exercise Name over chair Side bilateral Reps/Minutes 15 Neuro Re-Education Treatment Balance Activities tilt board Details fwd/back & side to side wt shifts SLS Comments 1.Toe taps to 6 in step 12 B 2.SLS w/ball roll under foot B hurdles Details 1 hand on hand rail Comments 1. fwd over step through x2 2.side step over hurdles x1 B PT-OP-T Assessment and Plan Start: 02/20/22 18:11 Freq: Status: Active Protocol: Document 04/27/22 14:05 [facility] (Rec: 04/27/22 14:33 [facility] [id number]) Physical Therapy Assessment Goals falls [facility] Goal (LTG) Pt will report no falls for 3 weeks LTG Duration 05/24/22 DGI Impairment 07/03 Short Term Goal (STG) Pt will improve score to at least 15 to dec risk for falls . STG Duration 04/10/22 Fdc Goal (LTG) Pt will imrpove score to at least 20 to dec risk for falls . LTG Duration 05/24/22 PRASAD Impairment 36 Short Term Goal (STG) Pt will improve score to at least >45 to show dec risk of fall and safe ambulator w/o AD . STG Duration 04/10/22 Fdc Goal (LTG) Pt will improve score to >50 to show safe community ambulator. LTG Duration 05/24/22 sit to stands Short Term Goal (STG) Pt will be able to do sit to stand from standard chair w/o UE use to show improved balancea nd LE strength STG Duration 04/10/22 Fdc Goal (LTG) Pt will be able to do 10 sit to stands in 30 sec which is an age related norm to show improved balance and LE strength LTG Duration 05/24/22 strength Short Term Goal (STG) Pt will be indep w/performance of HEP at home and w/dgt at her home. STG Duration 04/08/22 Invas Tech Goal (LTG) Pt will improve strength to at least 4+/5 on R and at least 4/5 on L to improve pt's strength in order to improve balance and gait mechanics. LTG Duration 05/24/22 Assessment Summary Assessment Pt did well with balance exercises today but did fatigue w/susan activities. He does show dec balance w/ step ups. Physical Therapy Plan Frequency and Duration Frequency of Treatment 2x/Week Duration of Treatment 3 months Plan of Care Start Date 02/21/22 Plan of Care End Date 05/24/22 Next Visit Focus/Plan Next Note Type Treatment Note Next Visit Plan Progress standing balance and overall strength
--- NOTE | 2022-05-01 18:01 | PT.OTN ---
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) Ataxia, unspecified (05/01/22) Physical Therapy Treatment Note PT-OP-A Visit Information Start: 02/20/22 18:11 Freq: Status: Active Protocol: Document 05/01/22 17:58 [facility] (Rec: 05/01/22 18:01 [facility] [id number]) Out-Patient Physical Therapy Visit Information Visit Information Visit Type Treatment Note Visit Note 03/19 Visit Start Time 10:35 Visit Stop Time 11:15 Total Visit Minutes 40 Visit Number 7 Number of EVP GENERAL COUNSEL Visits 0 PT-OP-B Current Condition Start: 02/20/22 18:11 Freq: Status: Active Protocol: Document 02/21/22 13:50 [facility] (Rec: 02/21/22 14:42 [facility] [id number]) Current Condition History of Current Condition Current Complaints falls, weakness, dec balance History of Current Condition Pt reports he had a CVA in 2013 and had PT/OT for 2 months including SNF and it looked like he was going to recover all the way then had a seizure, in 2014. He reports he has no balance at all. If i stub my toe, I go down. A month or so ago, he had a bad case of brochitis and got very weak. He is still not where he was prior to brochitis. He walks with walking stick in R hand at all times. He does a lot of things outside. He has lawn tractor close by in case he needs to grab. He lives alone and has a large yard. He keeps up the shrubs, and uses the medical review coordinator. He can most of the time get up when he falls. He is falling at least 1x/week. Pt reports his L leg doesn't do a lot of movement. 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 Pt reports last couple years, the falls have been worse. He doesn't drive and dgt brings him. Pt lives in [place] and will be staying with his dgt for a few weeks at a time then going home for a few weeks. Treatment Goals Patient/Caregiver Goals Improve balance, improve gait, strengthen L leg, dec falls PT-OP-C Subjective Start: 02/20/22 18:11 Freq: Status: Active Protocol: Document 05/01/22 17:58 [facility] (Rec: 05/01/22 18:01 [facility] [id number]) OP-PT Subjective Patient Comments Patient Comments pt reports no falls since last session. He returns home later this week. PT-OP-D Balance Start: 02/20/22 18:11 Freq: Status: Active Protocol: Document 02/21/22 13:50 [facility] (Rec: 02/21/22 14:42 [facility] [id number]) Balance Tests Prasad Balance Test Prasad Balance Test Score 36 Single Limb Standing Single Limb- Right 1 sec Single Limb- Left 1 sec PT-OP-E Functional Tests Start: 02/20/22 18:11 Freq: Status: Active Protocol: Document 02/21/22 13:50 [facility] (Rec: 02/21/22 14:42 [facility] [id number]) Functional Tests 30 Second Sit to Stand Test Score 6 Comments w/hands Dynamic Gait Index (DGI) Score 10 Five Times Sit to Stand Test Score 25 sec Comments w/hands Timed Up and Go (TUG) Score 26 sec no AD PT-OP-G Mobility & Gait Start: 02/20/22 18:11 Freq: Status: Active Protocol: Document 02/21/22 13:50 [facility] (Rec: 02/21/22 14:42 [facility] [id number]) OP Mobility Evaluation Bed Mobility Rolling indep Transfers Sit to Stand must uses UE OP Gait Assessment Comments Gait Comments Pt has dec DF w/LLE w/ clearance, dec stance time on on LLE , slow, walking stick in RUE PT-OP-M Strength Start: 02/20/22 18:11 Freq: Status: Active Protocol: Document 02/21/22 13:50 [facility] (Rec: 02/21/22 14:42 [facility] [id number]) Hip Strength Hip Manual Muscle Testing Right Flexion (L2) 4- Good- Abduction 3+ Fair+ External Rotation 4 Good Internal Rotation 4+ Good+ Left Flexion (L2) 3+ Fair+ Abduction 3 Fair External Rotation 3+ Fair+ Internal Rotation 3- Fair- Knee Strength Knee Manual Muscle Testing Right Flexion (S2) 5 Normal Extension (L3) 5 Normal Left Flexion (S2) 3+ Fair+ Extension (L3) 4 Good Ankle/Foot Strength Ankle and Foot Manual Muscle Testing Right Dorsiflexion (L4) 5 Normal Plantarflexion (S1) 5 Normal Comments PF tested seated Left Dorsiflexion (L4) 3- Fair- Plantarflexion (S1) 4- Good- Comments PF tested seated PT-OP-Q Treatments Start: 02/20/22 18:11 Freq: Status: Active Protocol: Document 05/01/22 17:58 [facility] (Rec: 05/01/22 18:01 [facility] [id number]) Cardio Equipment Recumbent Elliptical (Biodex) Duration (Minutes) 6 Resistance 8-9 Seat Position 8 Gym Equipment Shuttle Balance red clips Comments fwd & side : WBOS & NBOS fwd: staggered stance Therapeutic Exercises Sitting Exercises APs Side bilateral Reps/Minutes 15 Standing Exercises step ups Side left Equipment Used 4 in step rail prn Reps/Minutes 10 Neuro Re-Education Treatment Balance Activities tilt board Details fwd/back & side to side wt shifts SLS Comments 1.Toe taps to 6 in step 12 B 2.SLS w/ball roll under foot B hurdles Details 1 hand on hand rail Comments 1. fwd over step through x2 2.side step over hurdles x1 B PT-OP-T Assessment and Plan Start: 02/20/22 18:11 Freq: Status: Active Protocol: Document 05/01/22 17:58 [facility] (Rec: 05/01/22 18:01 [facility] [id number]) Physical Therapy Assessment Goals falls Cupola Liner Helper Goal (LTG) Pt will report no falls for 3 weeks LTG Duration 05/24/22 DGI Impairment 07/03 Short Term Goal (STG) Pt will improve score to at least 15 to dec risk for falls . STG Duration 04/10/22 Cupola Liner Helper Goal (LTG) Pt will imrpove score to at least 20 to dec risk for falls . LTG Duration 05/24/22 PRASAD Impairment 36 Short Term Goal (STG) Pt will improve score to at least >45 to show dec risk of fall and safe ambulator w/o AD . STG Duration 04/10/22 Group Home Goal (LTG) Pt will improve score to >50 to show safe community ambulator. LTG Duration 05/24/22 sit to stands Short Term Goal (STG) Pt will be able to do sit to stand from standard chair w/o UE use to show improved balancea nd LE strength STG Duration 04/10/22 Group Home Goal (LTG) Pt will be able to do 10 sit to stands in 30 sec which is an age related norm to show improved balance and LE strength LTG Duration 05/24/22 strength Short Term Goal (STG) Pt will be indep w/performance of HEP at home and w/dgt at her home. STG Duration 04/08/22 Cupola Liner Helper Goal (LTG) Pt will improve strength to at least 4+/5 on R and at least 4/5 on L to improve pt's strength in order to improve balance and gait mechanics. LTG Duration 05/24/22 Assessment Summary Assessment Pt was very fatigued by end of session and felt done. He did well with step ups today after first few but did initially struggle w/foot placement & balance w/step up/ down./ Physical Therapy Plan Frequency and Duration Frequency of Treatment 2x/Week Duration of Treatment 3 months Plan of Care Start Date 02/21/22 Plan of Care End Date 05/24/22 Next Visit Focus/Plan Next Note Type Progress Note Next Visit Plan Progress standing balance and overall strength
--- NOTE | 2022-05-16 16:04 | PT.OTN ---
Current Diagnoses Ataxia following cerebral infarction (05/16/22) Ataxia, unspecified (05/16/22) Physical Therapy Treatment Note PT-OP-A Visit Information Start: 02/20/22 18:11 Freq: Status: Active Protocol: Document 05/16/22 14:37 [facility] (Rec: 05/16/22 16:04 [facility] [id number]) Out-Patient Physical Therapy Visit Information Visit Information Visit Type Progress Note Visit Note 09/19 Visit Start Time 14:36 Visit Stop Time 15:15 Total Visit Minutes 39 Visit Number 8 Number of AUDIO VISUAL ENGINEER Visits 0 PT-OP-B Current Condition Start: 02/20/22 18:11 Freq: Status: Active Protocol: Document 02/21/22 13:50 [facility] (Rec: 02/21/22 14:42 [facility] [id number]) Current Condition History of Current Condition Current Complaints falls, weakness, dec balance History of Current Condition Pt reports he had a CVA in 2013 and had PT/OT for 2 months including SNF and it looked like he was going to recover all the way then had a seizure, in 2014. He reports he has no balance at all. If i stub my toe, I go down. A month or so ago, he had a bad case of brochitis and got very weak. He is still not where he was prior to brochitis. He walks with walking stick in R hand at all times. He does a lot of things outside. He has lawn tractor close by in case he needs to grab. He lives alone and has a large yard. He keeps up the shrubs, and uses the park maintenance technician. He can most of the time get up when he falls. He is falling at least 1x/week. Pt reports his L leg doesn't do a lot of movement. 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 Pt reports last couple years, the falls have been worse. He doesn't drive and dgt brings him. Pt lives in [place] and will be staying with his dgt for a few weeks at a time then going home for a few weeks. Treatment Goals Patient/Caregiver Goals Improve balance, improve gait, strengthen L leg, dec falls PT-OP-C Subjective Start: 02/20/22 18:11 Freq: Status: Active Protocol: Document 05/16/22 14:37 [facility] (Rec: 05/16/22 16:04 [facility] [id number]) OP-PT Subjective Patient Comments Patient Comments no falls since apr 26 PT-OP-D Balance Start: 02/20/22 18:11 Freq: Status: Active Protocol: Document 05/16/22 14:37 [facility] (Rec: 05/16/22 16:04 [facility] [id number]) Balance Tests Prasad Balance Test Prasad Balance Test Score 45 PT-OP-E Functional Tests Start: 02/20/22 18:11 Freq: Status: Active Protocol: Document 05/16/22 14:37 [facility] (Rec: 05/16/22 16:04 [facility] [id number]) Functional Tests 30 Second Sit to Stand Test Score 3x` Comments mult partial but fell back before up. Dynamic Gait Index (DGI) Score 17 PT-OP-G Mobility & Gait Start: 02/20/22 18:11 Freq: Status: Active Protocol: Document 02/21/22 13:50 [facility] (Rec: 02/21/22 14:42 [facility] [id number]) OP Mobility Evaluation Bed Mobility Rolling indep Transfers Sit to Stand must uses UE OP Gait Assessment Comments Gait Comments Pt has dec DF w/LLE w/ clearance, dec stance time on on LLE , slow, walking stick in RUE PT-OP-M Strength Start: 02/20/22 18:11 Freq: Status: Active Protocol: Document 05/16/22 14:37 [facility] (Rec: 05/16/22 16:04 [facility] [id number]) Hip Strength Hip Manual Muscle Testing Right Flexion (L2) 5 Normal Abduction 3+ Fair+ External Rotation 4+ Good+ Internal Rotation 5 Normal Left Flexion (L2) 4- Good- Abduction 3 Fair External Rotation 4- Good- Internal Rotation 4- Good- Knee Strength Knee Manual Muscle Testing Right Flexion (S2) 5 Normal Extension (L3) 5 Normal Left Flexion (S2) 4+ Good+ Extension (L3) 4+ Good+ Ankle/Foot Strength Ankle and Foot Manual Muscle Testing Right Dorsiflexion (L4) 5 Normal Plantarflexion (S1) 5 Normal Comments PF tested seated Left Dorsiflexion (L4) 3- Fair- Plantarflexion (S1) 4- Good- Comments PF tested seated PT-OP-Q Treatments Start: 02/20/22 18:11 Freq: Status: Active Protocol: Document 05/16/22 14:37 [facility] (Rec: 05/16/22 16:04 [facility] [id number]) Self-Care/Home Management Treatment Education Other Education edu re: prognosis w/stroke that he will not progress further than where he was with prior PT after stroke. Discussed goal is to cont to dec falls as falls inc risk significantly. PT-OP-T Assessment and Plan Start: 02/20/22 18:11 Freq: Status: Active Protocol: Document 05/16/22 14:37 [facility] (Rec: 05/16/22 16:04 [facility] [id number]) Physical Therapy Assessment Goals falls Penitentiary Goal (LTG) Pt will report no falls for 3 weeks 05/16-about 2.75 wks LTG Duration 08/15 DGI Impairment 07/03 Short Term Goal (STG) Pt will improve score to at least 15 to dec risk for falls . STG Duration achieved to 05/16 Penitentiary Goal (LTG) Pt will imrpove score to at least 20 to dec risk for falls . LTG Duration 08/15 PRASAD Impairment 36 Short Term Goal (STG) Pt will improve score to at least >45 to show dec risk of fall and safe ambulator w/o AD . STG Duration achieved to 45 05/16 After School Caregiver Goal (LTG) Pt will improve score to >50 to show safe community ambulator. LTG Duration 08/15 sit to stands Short Term Goal (STG) Pt will be able to do sit to stand from standard chair w/o UE use to show improved balancea nd LE strength STG Duration achieved After School Caregiver Goal (LTG) Pt will be able to do 10 sit to stands in 30 sec which is an age related norm to show improved balance and LE strength 05/16-3x LTG Duration 08/15 strength Short Term Goal (STG) Pt will be indep w/performance of HEP at home and w/dgt at her home. STG Duration achieved and progressing as able Penitentiary Goal (LTG) Pt will improve strength to at least 4+/5 on R and at least 4/5 on L to improve pt's strength in order to improve balance and gait mechanics. 05/16-improved LTG Duration 08/15 Assessment Summary Assessment Pt is progressing with PT showing much improved balance and strength. He still shows deficits and would benefit from cont PT to address this and dec fall risk further. Pt does not come consistantly to PT d[place]t [place]ign [place] the [place] and coming only when he is at his dgt's for a fwe weeks at a time. Physical Therapy Plan Frequency and Duration Frequency of Treatment 2x/Week Duration of Treatment 3 months Plan of Care Start Date 05/16/22 Plan of Care End Date 08/15/22 Therapeutic Interventions Therapeutic Interventions Aquatic Therapy,Balance Training,Gait Training,Home Exercise Program,Manual Therapy,Neuromuscular Re- education,Patient/Caregiver Education,Self-Care/Home Management,Taping,Therapeutic Activities,Therapeutic Exercises Next Visit Focus/Plan Next Note Type Treatment Note Next Visit Plan Progress standing balance and overall strength
--- NOTE | 2022-05-16 16:04 | PT.OPPOC ---
Physical, Occupational & Speech Therapy At [facility] Current Diagnoses Ataxia following cerebral infarction (05/16/22) Ataxia, unspecified (05/16/22) Visit Care Team Role Provider Type Ranjan Zhao MD Attending Provider Non-Staff Family Provider Primary Care Provider Referring Provider Specialty: Internal Medicine Address: [address] [place], [place] [id number], [address] Email: Plan Of Care PT-OP-T Assessment and Plan Start: 02/20/22 18:11 Freq: Status: Active Protocol: Document 05/16/22 14:37 [facility] (Rec: 05/16/22 16:04 [facility] [id number]) Physical Therapy Assessment Goals falls Mcfp Goal (LTG) Pt will report no falls for 3 weeks 05/16-about 2.75 wks LTG Duration 08/15 DGI Impairment 07/03 Short Term Goal (STG) Pt will improve score to at least 15 to dec risk for falls . STG Duration achieved to 05/16 Group Program Manager Goal (LTG) Pt will imrpove score to at least 20 to dec risk for falls . LTG Duration 12/ PRASAD Impairment 36 Short Term Goal (STG) Pt will improve score to at least >45 to show dec risk of fall and safe ambulator w/o AD . STG Duration achieved to 45 05/16 Group Program Manager Goal (LTG) Pt will improve score to >50 to show safe community ambulator. LTG Duration 12 sit to stands Short Term Goal (STG) Pt will be able to do sit to stand from standard chair w/o UE use to show improved balancea nd LE strength STG Duration achieved Group Program Manager Goal (LTG) Pt will be able to do 10 sit to stands in 30 sec which is an age related norm to show improved balance and LE strength 05/16-3x LTG Duration 08/15 strength Short Term Goal (STG) Pt will be indep w/performance of HEP at home and w/dgt at her home. STG Duration achieved and progressing as able Group Program Manager Goal (LTG) Pt will improve strength to at least 4+/5 on R and at least 4/5 on L to improve pt's strength in order to improve balance and gait mechanics. 05/16-improved LTG Duration 08/15 Assessment Summary Assessment Pt is progressing with PT showing much improved balance and strength. He still shows deficits and would benefit from cont PT to address this and dec fall risk further. Pt does not come consistantly to PT d/t [place]ign [place] the state and coming only when he is at his dgt's for a fwe weeks at a time. Physical Therapy Plan Frequency and Duration Frequency of Treatment 2x/Week Duration of Treatment 3 months Plan of Care Start Date 05/16/22 Plan of Care End Date 08/15/22 Therapeutic Interventions Therapeutic Interventions Aquatic Therapy,Balance Training,Gait Training,Home Exercise Program,Manual Therapy,Neuromuscular Re- education,Patient/Caregiver Education,Self-Care/Home Management,Taping,Therapeutic Activities,Therapeutic Exercises Next Visit Focus/Plan Next Note Type Treatment Note Next Visit Plan Progress standing balance and overall strength Plan of Care Dates Plan of Care Start Date 05/16/22 Plan of Care End Date 08/15/22 Electronically Signed by: Maya Alexandra, PT 05/16/22 5067 If you are in agreement with this Plan of Care, please return a signed and dated copy. I have reviewed this Plan of Care and certify that the skilled therapy services above are required to meet the patient?s needs. Physician Signature Date Printed Name and Credentials Clinical Instructor Signature Printed Name and Credentials
--- NOTE | 2022-05-18 15:20 | PT.OTN ---
Current Diagnoses Ataxia following cerebral infarction (05/18/22) Ataxia, unspecified (05/18/22) Physical Therapy Treatment Note PT-OP-A Visit Information Start: 02/20/22 18:11 Freq: Status: Active Protocol: Document 05/18/22 14:36 [facility] (Rec: 05/18/22 15:20 [facility] [id number]) Out-Patient Physical Therapy Visit Information Visit Information Visit Type Treatment Note Visit Note 10/20 Visit Start Time 14:32 Visit Stop Time 15:14 Total Visit Minutes 42 Visit Number 9 Number of LAYBOY TENDER Visits 0 PT-OP-B Current Condition Start: 02/20/22 18:11 Freq: Status: Active Protocol: Document 02/21/22 13:50 [facility] (Rec: 02/21/22 14:42 [facility] [id number]) Current Condition History of Current Condition Current Complaints falls, weakness, dec balance History of Current Condition Pt reports he had a CVA in 2013 and had PT/OT for 2 months including SNF and it looked like he was going to recover all the way then had a seizure, in 2014. He reports he has no balance at all. If i stub my toe, I go down. A month or so ago, he had a bad case of brochitis and got very weak. He is still not where he was prior to brochitis. He walks with walking stick in R hand at all times. He does a lot of things outside. He has lawn tractor close by in case he needs to grab. He lives alone and has a large yard. He keeps up the shrubs, and uses the medical unit secretary. He can most of the time get up when he falls. He is falling at least 1x/week. Pt reports his L leg doesn't do a lot of movement. 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 Pt reports last couple years, the falls have been worse. He doesn't drive and dgt brings him. Pt lives in [place] and will be staying with his dgt for a few weeks at a time then going home for a few weeks. Treatment Goals Patient/Caregiver Goals Improve balance, improve gait, strengthen L leg, dec falls PT-OP-C Subjective Start: 02/20/22 18:11 Freq: Status: Active Protocol: Document 05/18/22 14:36 [facility] (Rec: 05/18/22 15:20 [facility] [id number]) OP-PT Subjective Patient Comments Patient Comments no falls. returns home tomrorow PT-OP-D Balance Start: 02/20/22 18:11 Freq: Status: Active Protocol: Document 05/16/22 14:37 [facility] (Rec: 05/16/22 16:04 [facility] [id number]) Balance Tests Prasad Balance Test Prasad Balance Test Score 45 PT-OP-E Functional Tests Start: 02/20/22 18:11 Freq: Status: Active Protocol: Document 05/16/22 14:37 [facility] (Rec: 05/16/22 16:04 [facility] [id number]) Functional Tests 30 Second Sit to Stand Test Score 3x` Comments mult partial but fell back before up. Dynamic Gait Index (DGI) Score 17 PT-OP-G Mobility & Gait Start: 02/20/22 18:11 Freq: Status: Active Protocol: Document 02/21/22 13:50 [facility] (Rec: 02/21/22 14:42 [facility] [id number]) OP Mobility Evaluation Bed Mobility Rolling indep Transfers Sit to Stand must uses UE OP Gait Assessment Comments Gait Comments Pt has dec DF w/LLE w/ clearance, dec stance time on on LLE , slow, walking stick in RUE PT-OP-M Strength Start: 02/20/22 18:11 Freq: Status: Active Protocol: Document 05/16/22 14:37 [facility] (Rec: 05/16/22 16:04 [facility] [id number]) Hip Strength Hip Manual Muscle Testing Right Flexion (L2) 5 Normal Abduction 3+ Fair+ External Rotation 4+ Good+ Internal Rotation 5 Normal Left Flexion (L2) 4- Good- Abduction 3 Fair External Rotation 4- Good- Internal Rotation 4- Good- Knee Strength Knee Manual Muscle Testing Right Flexion (S2) 5 Normal Extension (L3) 5 Normal Left Flexion (S2) 4+ Good+ Extension (L3) 4+ Good+ Ankle/Foot Strength Ankle and Foot Manual Muscle Testing Right Dorsiflexion (L4) 5 Normal Plantarflexion (S1) 5 Normal Comments PF tested seated Left Dorsiflexion (L4) 3- Fair- Plantarflexion (S1) 4- Good- Comments PF tested seated PT-OP-Q Treatments Start: 02/20/22 18:11 Freq: Status: Active Protocol: Document 05/18/22 14:36 [facility] (Rec: 05/18/22 15:20 [facility] [id number]) Cardio Equipment Recumbent Elliptical (Biodex) Duration (Minutes) 6 Resistance 8 Seat Position 8 Gym Equipment Shuttle Balance red clips Comments fwd & side : WBOS & NBOS fwd: staggered stance Therapeutic Exercises Sitting Exercises APs Sitting Exercise Name DF taps Side bilateral Reps/Minutes 2x20 Standing Exercises step ups Side bilateral Equipment Used 4 in step rail prn Reps/Minutes 10 squat Standing Exercise Name over chair Side bilateral Reps/Minutes 15 calf stretch Standing Exercise Name vianney Side bilateral Reps/Minutes 1 min Neuro Re-Education Treatment Balance Activities tilt board Details fwd/back & side to side wt shifts hurdles Details 1 hand on hand rail Comments 1. fwd over step through x2 2.side step over hurdles x1 B PT-OP-T Assessment and Plan Start: 02/20/22 18:11 Freq: Status: Active Protocol: Document 05/18/22 14:36 [facility] (Rec: 05/18/22 15:20 [facility] [id number]) Physical Therapy Assessment Goals falls Grove Worker Goal (LTG) Pt will report no falls for 3 weeks 05/16-about 2.75 wks LTG Duration 12/ DGI Impairment 07/03 Short Term Goal (STG) Pt will improve score to at least 15 to dec risk for falls . STG Duration achieved to 05/16 Intermediate Goal (LTG) Pt will imrpove score to at least 20 to dec risk for falls . LTG Duration 12/6 PRASAD Impairment 36 Short Term Goal (STG) Pt will improve score to at least >45 to show dec risk of fall and safe ambulator w/o AD . STG Duration achieved to 45 05/16 Intermediate Goal (LTG) Pt will improve score to >50 to show safe community ambulator. LTG Duration 12/6 sit to stands Short Term Goal (STG) Pt will be able to do sit to stand from standard chair w/o UE use to show improved balancea nd LE strength STG Duration achieved Grove Worker Goal (LTG) Pt will be able to do 10 sit to stands in 30 sec which is an age related norm to show improved balance and LE strength /6-3x LTG Duration 12/ strength Short Term Goal (STG) Pt will be indep w/performance of HEP at home and w/dgt at her home. STG Duration achieved and progressing as able Grove Worker Goal (LTG) Pt will improve strength to at least 4+/5 on R and at least 4/5 on L to improve pt's strength in order to improve balance and gait mechanics. 05/16-improved LTG Duration 08/15 Assessment Summary Assessment Pt idd well with balacne today . He did better w/wt shifts on [employer] board today overall. Pt feels fatigue especially i his hips by end of session. Physical Therapy Plan Frequency and Duration Frequency of Treatment 2x/Week Duration of Treatment 3 months Plan of Care Start Date 05/16/22 Plan of Care End Date 08/15/22 Next Visit Focus/Plan Next Note Type Treatment Note Next Visit Plan Progress standing balance and overall strength
--- NOTE | 2023-01-16 13:58 | PT.OPDS ---
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 (Rec: 02/21/22 14:42 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 He reports he has no balance at all. If i stub my toe, I go down. A month or so ago, he had a bad case of brochitis and got very weak. He is still not where he was prior to brochitis. He walks with walking stick in R hand at all times. He does a lot of things outside. He has lawn tractor close by in case he needs to grab. He lives alone and has a large yard. He keeps up the shrubs, and uses the head swamper. He can most of the time get up when he falls. He is falling at least 1x/week. Pt reports his L leg doesn't do a lot of movement. 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 Pt reports last couple years, the falls have been worse. He doesn't drive and dgt brings him. Pt lives in [place] and will be staying with his dgt for a few weeks at a time then going home for a few weeks. Treatment Goals Patient/Caregiver Goals Improve balance, improve gait, strengthen L leg, dec falls PT-OP-C Subjective Start: 02/20/22 18:11 Freq: Status: Active Protocol: Document 05/18/22 14:36 [facility] (Rec: 05/18/22 15:20 [facility] [id number]) OP-PT Subjective Patient Comments Patient Comments no falls. returns home tomrorow PT-OP-D Balance Start: 02/20/22 18:11 Freq: Status: Active Protocol: Document 05/16/22 14:37 [facility] (Rec: 05/16/22 16:04 [facility] [id number]) Balance Tests Prasad Balance Test Prasad Balance Test Score 45 PT-OP-E Functional Tests Start: 02/20/22 18:11 Freq: Status: Active Protocol: Document 05/16/22 14:37 [facility] (Rec: 05/16/22 16:04 [facility] [id number]) Functional Tests 30 Second Sit to Stand Test Score 3x` Comments mult partial but fell back before up. Dynamic Gait Index (DGI) Score 17 PT-OP-G Mobility & Gait Start: 02/20/22 18:11 Freq: Status: Active Protocol: Document 02/21/22 13:50 [facility] (Rec: 02/21/22 14:42 [facility] [id number]) OP Mobility Evaluation Bed Mobility Rolling indep Transfers Sit to Stand must uses UE OP Gait Assessment Comments Gait Comments Pt has dec DF w/LLE w/ clearance, dec stance time on on LLE , slow, walking stick in RUE PT-OP-M Strength Start: 02/20/22 18:11 Freq: Status: Active Protocol: Document 05/16/22 14:37 [facility] (Rec: 05/16/22 16:04 [facility] [id number]) Hip Strength Hip Manual Muscle Testing Right Flexion (L2) 5 Normal Abduction 3+ Fair+ External Rotation 4+ Good+ Internal Rotation 5 Normal Left Flexion (L2) 4- Good- Abduction 3 Fair External Rotation 4- Good- Internal Rotation 4- Good- Knee Strength Knee Manual Muscle Testing Right Flexion (S2) 5 Normal Extension (L3) 5 Normal Left Flexion (S2) 4+ Good+ Extension (L3) 4+ Good+ Ankle/Foot Strength Ankle and Foot Manual Muscle Testing Right Dorsiflexion (L4) 5 Normal Plantarflexion (S1) 5 Normal Comments PF tested seated Left Dorsiflexion (L4) 3- Fair- Plantarflexion (S1) 4- Good- Comments PF tested seated PT-OP-T Assessment and Plan Start: 02/20/22 18:11 Freq: Status: Active Protocol: Document 01/16/23 13:56 [facility] (Rec: 01/16/23 13:58 [facility] [id number]) Physical Therapy Assessment Goals falls File Keeper Goal (LTG) Pt will report no falls for 3 weeks 05/16-about 2.75 wks LTG Duration 08/15 DGI Impairment 07/03 Short Term Goal (STG) Pt will improve score to at least 15 to dec risk for falls . STG Duration achieved to 05/16 File Keeper Goal (LTG) Pt will imrpove score to at least 20 to dec risk for falls . LTG Duration 08/15 PRASAD Impairment 36 Short Term Goal (STG) Pt will improve score to at least >45 to show dec risk of fall and safe ambulator w/o AD . STG Duration achieved to 45 05/16 Snf Goal (LTG) Pt will improve score to >50 to show safe community ambulator. LTG Duration 08/15 sit to stands Short Term Goal (STG) Pt will be able to do sit to stand from standard chair w/o UE use to show improved balancea nd LE strength STG Duration achieved Snf Goal (LTG) Pt will be able to do 10 sit to stands in 30 sec which is an age related norm to show improved balance and LE strength 05/16-3x LTG Duration 08/15 strength Short Term Goal (STG) Pt will be indep w/performance of HEP at home and w/dgt at her home. STG Duration achieved and progressing as able Snf Goal (LTG) Pt will improve strength to at least 4+/5 on R and at least 4/5 on L to improve pt's strength in order to improve balance and gait mechanics. 05/16-improved LTG Duration 08/15 Assessment Summary Assessment dgt called clinic saying pt felt that he had reached the max benefit from therapy that he thinks he will receive based on his age and having had a stroke. She reported he was doing better than he had been in a while. At this time, pt has not been seen since 05/18 and did not retrunt o PT after htis call and PT leaving a message that he could cont PT as he had been making progress. DC d/t pt no longer attending PT Physical Therapy Plan Discharge Physical Therapy Discharge Reasons No Longer Attending PT
== END 2023-01-17 15:13 | disposition home or self-care (01) ==
LOC: PHYS 14:30
PROVIDERS: Family Provider Family Medicine; PCP Family Medicine; Referring Provider Family Medicine; Visit Provider Family Medicine
DX: I69.393 Ataxia following cerebral infarction (principal); R27.0 Ataxia, unspecified
CPT/HCPCS: 97110; 97112; 97163; 97535